=== PATIENT | female | born 1945 | race Two or more races ===

== ENCOUNTER → 2024-07-08 | Outpatient (CLI) | payer MEDICARE, MEDICAID, SELFPAY ==
--- NOTE | 2024-07-08 07:30 | XR_ITS ---
Examination: MRI brain without intravenous contrast. Date and time of exam: July 08, 2024 0708 hrs. Indications: Episodes of left hand and left arm paresthesias beginning 6 months ago with Technique: Multiple axial and sagittal images of the brain obtained. Siemens high-resolution 1.5 [employer] short bore scanners utilized. Sagittal sections, T1-weighted, TR 500, TE 14, are performed. Axial sections proton-density and T2-weighted have been obtained. Inversion recovery axial images, TR 9, 260, TE 111, TI 2500. Diffusion weighted images, axial sections, TR 4800, TE 128, B value 1000 Axial sections, ADC map, TR 4800, TE 128 Findings: 29 x 29 mm lesion in the right parietal lobe with surrounding edema Mild mass effect upon the right trigone, mild mass effect compressing the right lateral ventricle Ventricles are not enlarged No restricted diffusion Effacement of cortical sulcal markings adjacent to the brain lesion Fourth ventricle midline Brainstem intact Impression: 29 mm neoplastic lesion right parietal lobe, differential would include meningioma, other primary brain tumors, cerebral metastatic lesion Recommend this patient return for brain MRI images post intravenous contrast
== END | disposition home or self-care (01) ==
LOC: SMRI 06:57
PROVIDERS: PCP Family Medicine; Referring Provider Psychiatry & Neurology Neurology; Visit Provider Psychiatry & Neurology Neurology
DX: G93.89 Other specified disorders of brain (principal)
CPT/HCPCS: 70551

== ENCOUNTER → 2024-08-01 | Outpatient (CLI) | payer MEDICARE, MEDICAID, SELFPAY ==
[2024-08-01 16:22] LABS: Albumin, Serum 4.1 gm/dL (3.4-4.8); Anion Gap 6 (7-16); BUN/Creatinine Ratio 20 Ratio (12-20); Blood Urea Nitrogen 14 mg/dL (9-23); Calcium 8.5 mg/dL (8.3-10.6); Calcium (Corrected) 8.5 mg/dL (8.5-10.1); Carbon Dioxide 30.8 mMol/L (20.0-31.0); Chloride 104 mMol/L (98-107); Creatinine (Component) 0.7 mg/dL (0.6-1.3); Glucose 88 mg/dL (74-106); Osmolality,Calculated 280 (275-295); Phosphorous 3.4 mg/dL (2.4-5.1); Potassium 4.2 mMol/L (3.4-5.1); Sodium 141 mMol/L (136-145); eGFR > 60 See Note
== END | disposition home or self-care (01) ==
LOC: COPL 13:52
PROVIDERS: PCP Family Medicine; Referring Provider Psychiatry & Neurology Neurology; Visit Provider Psychiatry & Neurology Neurology
DX: I10 Essential (primary) hypertension (principal)
CPT/HCPCS: 36415; 80069

== ENCOUNTER → 2024-08-02 | Outpatient (CLI) | payer MEDICARE, MEDICAID, SELFPAY ==
--- NOTE | 2024-08-02 09:15 | XR_ITS ---
Examination: MRI brain with intravenous contrast TECHNIQUE: Multiple axial sagittal coronal brain MRI images post intravenous administration 15 cc gadolinium INDICATIONS: 29 mm neoplastic lesion right parietal lobe on brain MRI without contrast July 08, 2024, episodes of the left hand the left arm paresthesias beginning 6 months ago Exam date and time: August 02, 2024 0934 hours FINDINGS: 28 x 29 x 26 mm enhancing lesion right parietal convexity most consistent with meningioma Significant surrounding edema with effacement of the sulcal markings, no definite midline shift Additional enhancing lesions not identified Ventricles are normal in size IMPRESSION: 28 x 29 x 26 mm enhancing lesion right parietal convexity most consistent with meningioma
== END | disposition home or self-care (01) ==
LOC: SMRI 08:48
PROVIDERS: PCP Family Medicine; Referring Provider Psychiatry & Neurology Neurology; Visit Provider Psychiatry & Neurology Neurology
DX: G93.9 Disorder of brain, unspecified (principal)
CPT/HCPCS: 70552; A9579

== ENCOUNTER → 2024-08-05 | Outpatient (CLI) | payer MEDICARE, MEDICAID, SELFPAY ==
--- NOTE | 2024-08-05 14:00 | XR_ITS ---
Examination: CT chest with intravenous contrast CT abdomen with intravenous contrast CT pelvis with intravenous contrast CT chest without intravenous contrast CT abdomen without intravenous contrast CT pelvis without intravenous contrast 2-D coronal and sagittal reconstructions Time of exam: August 05, 2024 1246 hours INDICATIONS: Enhancing lesion in the brain on brain MRI August 02, 2024, staging CTDI: vol (mGy) : 28.9 DLP: (mGycm): 2036 Technique: Multiple axial images of the chest, abdomen and pelvis with intravenous contrast, 3.0 mm slice thickness. Images obtained pre and post intravenous injection Isovue 370 60 cc. 2-D sagittal and coronal reconstructions. Low dose protocols were performed. One or more of the following dose reduction techniques were used; automated exposure control, adjustment of the mA and/or KV according to patient size, use of iterative reconstruction technique. Findings: Thoracic aortic calcification no aneurysmal dilatation No pulmonary artery filling defects No paratracheal tracheobronchial or bronchopulmonary adenopathy No pneumonia or pulmonary edema or pleural disease No visualized liver or splenic lesion Cholelithiasis No pancreatic or adrenal mass No renal or ureteral calculi, no hydronephrosis Abdominal aorta is not enlarged No abdominal or pelvic lymphadenopathy Atrophic uterus Urinary bladder intact Severe osteopenia with kyphoplasty L1 and chronic osteoporotic compressions thoracic and lumbar vertebral bodies, advanced narrowing right hip joint IMPRESSION: No mediastinal lymphadenopathy No pneumonia or pulmonary edema. Disease or pulmonary mass lesions Cholelithiasis No abdominal or pelvic mass
== END | disposition home or self-care (01) ==
PROVIDERS: PCP Family Medicine; Referring Provider Psychiatry & Neurology Neurology; Visit Provider Psychiatry & Neurology Neurology
DX: K80.20 Calculus of gallbladder without cholecystitis without obstruction (principal); C71.0 Malignant neoplasm of cerebrum, except lobes and ventricles
CPT/HCPCS: 71270; 74178; A4649; Q9967

== ENCOUNTER → 2025-01-02 | Outpatient (CLI) | payer MEDICARE, MEDICAID, SELFPAY ==
[2025-01-02 09:03] LABS: Albumin, Serum 3.8 gm/dL (3.4-4.8); Anion Gap 10 (7-16); BUN/Creatinine Ratio 13 Ratio (12-20); Blood Urea Nitrogen 8 mg/dL (9-23); Calcium 8.7 mg/dL (8.3-10.6); Calcium (Corrected) 8.9 mg/dL (8.5-10.1); Carbon Dioxide 29.8 mMol/L (20.0-31.0); Chloride 105 mMol/L (98-107); Creatinine (Component) 0.6 mg/dL (0.6-1.3); Glucose 89 mg/dL (74-106); Osmolality,Calculated 286 (275-295); Phosphorous 3.5 mg/dL (2.4-5.1); Potassium 4.5 mMol/L (3.4-5.1); Sodium 145 mMol/L (136-145); eGFR > 60 See Note
== END | disposition home or self-care (01) ==
LOC: COPL 07:48
PROVIDERS: PCP Family Medicine; Referring Provider Psychiatry & Neurology Neurology; Visit Provider Psychiatry & Neurology Neurology
DX: G40.89 Other seizures (principal)
CPT/HCPCS: 36415; 80069

== ENCOUNTER 2025-02-21 16:55 | Emergency (ER) | payer MEDICARE, MEDICAID, SELFPAY ==
[2025-02-21 16:57] VITALS: BP 117/68; PULSE 78; RESP 18; TEMP 36.8; O2SAT 97
--- NOTE | 2025-02-21 17:15 | PD.EDADULT ---
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 On my initial evaluation patient told me that he does not remember what happened. Currently patient is drowsy and sleepy. There was no confusion postictal according to the EMS. No trauma mention related to the incident. Patient told me that she took her Keppra this morning. Related Data Home Medications ?Medication ?Instructions ?Recorded ?Confirmed acetaminophen 650 mg 650 mg PO Q8H PRN Pain 05/29/17 12/07/17 tablet,extended release (Tylenol Arthritis Pain) gabapentin 300 mg capsule 300 mg PO TID 05/29/17 12/07/17 amitriptyline 10 mg tablet 10 mg PO QDAY 12/07/17 12/07/17 Previous Rx's ?Medication ?Instructions ?Recorded hydrocodone 5 mg-acetaminophen 325 1 tab PO Q6H PRN pain #10 tabs 05/29/17 mg tablet (Lester) Allergies Allergy/AdvReac Type Severity Reaction Status Date / Time latex Allergy Severe Rash Verified 02/21/25 17:24 Review of Systems Review of Systems Narrative Review of Systems: Review of system reviewed and within normal limits except mentioned in HPI ED Exam Narrative Physical exam: VITAL SIGNS: Reviewed. GENERAL APPEARANCE: Alert and interactive, but drowsy, follows commands, no acute distress, HEAD AND FACE: Non-traumatic. ENT: PERRL, pink conjunctivitis, eyelid no trauma, Mucous membrane moist. NECK: Supple, nontender, no nuchal rigidity. CHEST: No tenderness, no crepitus, no paradoxical movement, no retractions. LUNGS: Clear, well ventilated, symmetric, no rales, no wheezing, no ronchi, no stridor, good breath sounds bilaterally. HEART: Regular rate, regular rhythm, no murmur, no gallops. ABDOMEN: Soft, positive bowel sounds, nondistended, no guarding, nontender, no rebound, no masses, RECTAL: Deferred. GENITAL: Deferred. NEUROLOGICAL: Gross motor function intact sensory function intact, Appropriate for age. MUSCULOSKELETAL: low back nontender, full range of motion. EXTREMITIES: Nontender, full range of motion. SKIN: Color pink, dry, no rash, no lacerations, no abrasions, no contusions. LYMPHATICS: Deferred. Course Quality Measures none Orders Category Date Time Status EKG (ED ONLY) *Do not use* NOW Care 02/21/25 17:[address] head/brain wo con Stat Exams 02/21/25 17:18 Taken EKG (ED Only) Stat Exams 02/21/25 17:17 Draft CBC Stat Lab 02/21/25 17:38 Completed Comprehensive Metabolic Panel Stat Lab 02/21/25 17:38 Completed Prothrombin Time with INR Stat Lab 02/21/25 17:38 Completed UA, C/S IF [Urinalysis, C/S if Indicated] Stat Lab 02/21/25 16:30 Completed Ringers Lactated 1000 ml [Lactated Ringers] 1,000 ml Med 02/21/25 17:19 Discontinued IV 999 mls/hr levETIRAcetam INJ [Keppra Inj] Med 02/21/25 17:19 Discontinued 1,000 mg IVP X1 ONE Vital Signs Vital signs: Vital Signs Temperature 98.3 F 02/21/25 16:57 Pulse Rate 78 02/21/25 16:57 Respiratory Rate 18 02/21/25 16:57 Blood Pressure 117/68 02/21/25 16:57 Pulse Oximetry (%) 97 02/21/25 16:57 Oxygen Delivery Method Room Air 02/21/25 16:57 Discharge Plan Plan Patient Disposition: HOME (Self Care) Discharge Disposition comment: Stable Prescriptions/Referrals Prescriptions/Med Rec: No Action amitriptyline 10 mg Tablet 10 mg PO QDAY acetaminophen [Tylenol Arthritis Pain] 650 mg Tablet Extended Release 650 mg PO Q8H PRN (Reason: Pain) gabapentin 300 mg Capsule 300 mg PO TID hydrocodone-acetaminophen [Lester] 5-325 mg tablet 1 tab PO Q6H MDD 10 PRN (Reason: pain) Qty: 10 0RF Referrals: Joe Ross MD [Primary Care Provider, Family Practice] - In 1 week Problem List Clinical Impression: Breakthrough seizure Patient/Caregiver Discharge Instructions Discharge Activity: activity as tolerated Education Materials: Living Well with Epilepsy Additional Instructions: Thank you for the opportunity for serving you today. You are stable for discharged . 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 On my initial evaluation patient told me that he does not remember what happened. Currently patient is drowsy and sleepy. There was no confusion postictal according to the EMS. No trauma mention related to the incident. Patient told me that she took her Keppra this morning. EKG as interpreted by me showed sinus rhythm, ventricular to 72 bpm, no ST segment elevation depression noted. Patient's workup today CBC showed no leukocytosis. CMP normal urinalysis no UTI, CT scan of the head showed no acute intracranial pathology noted. Patient was given IV fluids, Keppra 1 g IV, no recurrence of seizure noted in the ED. Patient is totally back to baseline, alert oriented x 3. No complaints. Was noted to be ambulatory with help Medication Administration(s) Medication Administration History Discontinued Medications Lactated Ringer's (Lactated Ringers) 1,000 mls @ 999 mls/hr IV .Q1H1M ONE Stop: 02/21/25 18:19 Last Infusion: 02/21/25 20:01 Dose: Infused Documented By: [email or web address] Admin: 02/21/25 17:58 Dose: 999 mls/hr Documented By: BY Levetiracetam (Levetiracetam Inj 100 Mg/Ml Vial 5ml) 1,000 mg IVP X1 ONE Stop: 02/21/25 17:20 Last Admin: 02/21/25 17:55 Dose: 1,000 mg Documented By: DB Diagnosis Differential Diagnosis ED Complaint MDM: Breakthrough seizure, syncope, history of seizure Diagnoses ruled out and/or further discussions: Breakthrough seizure
--- NOTE | 2025-02-21 17:17 | EKG_ITS ---
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
--- NOTE | 2025-02-21 17:18 | XR_ITS ---
Examination: CT brain head without contrast. 2-D sagittal coronal reconstructions Date and time of exam: February 21, 2025, 1852 hours INDICATIONS: History of removal of brain tumor, weakness history this week CTDI: vol (mGy): 46.8 DLP: (mGycm): 911 Technique: Multiple CT axial sections of the brain have been obtained, 5 mm slice thickness. Contrast has not been administered. 2-D sagittal, coronal reconstructions have been obtained Low dose protocols were performed. One or more of the following dose reduction techniques were used; automated exposure control, adjustment of the mA and/or KV according to patient size, use of iterative reconstruction technique. Findings: No significant ventricular enlargement. Intra-axial or extra-axial hemorrhage density is not seen. No mass effect or midline shift Basal cisterns are not remarkable. Fourth ventricle is midline. Right craniotomy defect Impression: Negative for acute hemorrhage, mass effect or midline shift As clinically warranted, brain MRI follow-up would be preferable in assessing for residual or recurrent brain tumor
[2025-02-21 17:20] VITALS: PULSE 72; RESP 24; O2SAT 99
[2025-02-21 17:24] VITALS: BMI 32.5
[2025-02-21] MEDS: levETIRAcetam INJ 100 MG/ML VIAL 5ML 1000 MG IVP (17:55)
[2025-02-21] MEDS: RINGERS LACTATED 1000 ML 1,000 ML 999 ML IV (17:58)
[2025-02-21 18:00] VITALS: BP 143/79; PULSE 69; RESP 17; TEMP 36.5; O2SAT 96
[2025-02-21 18:02] LABS: Basophils # (Auto) 0.0 Thou/mm3 (0.0-0.2); Basophils % (Auto) 1 % (0-2.5); Eosinophils # (Auto) 0.3 Thou/mm3 (0.0-0.5); Eosinophils % (Auto) 5 % (0-10); Hematocrit 35.1 % (36.0-46.0); Hemoglobin 11.2 g/dL (12.0-16.0); Immature Granulocytes Auto 0.01 Thou/mm3 (0.00-0.00); Lymphocytes # (Auto) 3.0 Thou/mm3 (1.0-4.8); Lymphocytes % (Auto) 44 % (10-50); Mean Corpuscular HGB Conc 31.9 g/dl (31.0-37.0); Mean Corpuscular Hemoglobin 29.2 pg (25.0-35.0); Mean Corpuscular Volume 91 fL (80-100); Monocytes # (Auto) 0.4 Thou/mm3 (0.0-0.8); Monocytes % (Auto) 6 % (0-12); Neutrophils # (Auto) 3.0 Thou/mm3 (1.8-7.7); Neutrophils % (Auto) 44 % (37-80); Nucleated Red Blood Cell # 0.00 Thou/mm3 (0.00-0.00); Nucleated Red Blood Cell % 0 /100 WBC (0); Platelet Count 236 Thou/mm3 (140-440); RDW Standard Deviation 47.4 fL (36.4-46.3); Red Blood Count 3.84 Miln/mm3 (4.00-5.20); White Blood Count 6.8 Thou/mm3 (3.6-11.0)
[2025-02-21 18:12] LABS: INR 1.0 (0.9-1.3); Prothrombin Time 10.5 Seconds (9.0-12.2)
[2025-02-21 18:31] LABS: Alanine Aminotransferase < 7 U/L (10-49); Albumin, Serum 3.7 gm/dL (3.4-4.8); Albumin/Globulin Ratio 1.3 (1.2-2.2); Alkaline Phosphatase 82 U/L (46-116); Anion Gap 9 (7-16); Aspartate Amino Transferase 16 U/L (0-34); BUN/Creatinine Ratio 16 Ratio (12-20); Bilirubin,Total 0.3 mg/dL (0.3-1.2); Blood Urea Nitrogen 11 mg/dL (9-23); Calcium 8.4 mg/dL (8.3-10.6); Calcium (Corrected) 8.6 mg/dL (8.5-10.1); Carbon Dioxide 31.5 mMol/L (20.0-31.0); Chloride 106 mMol/L (98-107); Creatinine (Component) 0.7 mg/dL (0.6-1.3); Estimated Creatinine Clearance 58.3 mL/min (>60); Globulin 2.8 gm/dL (2.3-3.5); Glucose 102 mg/dL (74-106); Osmolality,Calculated 289 (275-295); Potassium 4.0 mMol/L (3.4-5.1); Sodium 146 mMol/L (136-145); Total Protein 6.5 gm/dL (5.7-8.2); eGFR > 60 See Note
[2025-02-21 18:50] VITALS: BP 145/79; PULSE 70; RESP 18; O2SAT 98
[2025-02-21 19:16] LABS: Collection Type, Urine Clean Catch; Squamous Epithelial Cell,Urine 0 /hpf (0-5)
[2025-02-21 19:20] VITALS: BP 133/96; PULSE 66; RESP 19; TEMP 36.6; O2SAT 98
[2025-02-21 19:26] LABS: Bilirubin,Urine Negative (Negative); Blood,Urine Trace (Negative); Clarity,Urine Clear (Clear/Hazy); Color,Urine Lt-Yellow (Lt Yel-Yel); Culture Indicated,Urine Not Indicated; Glucose, Urine Negative (Negative); Ketones,Urine Negative (Negative); Leukocyte Esterase,Urine Negative (Negative); Nitrite,Urine Negative (Negative); PH,Urine 6.5 (5.0-7.0); Protein,Urine Negative (Neg - Trace); RBC,Urine 1 /hpf (0-3); Specific Gravity,Urine 1.008 (1.001-1.035); Urobilinogen,Urine Negative mg/dL (0.0-1.0); WBC,Urine 1 /hpf (0-5)
--- NOTE | 2025-02-21 19:51 | PRELIM_ITS ---
CT scan of the head without intravenous contrast (axial sections with sagittal and coronal reformats) February 21, 2025 1823 hours Clinical history: Unresponsiveness No prior study is available for comparison. Findings: There is no evidence of intracranial hemorrhage, mass effect or midline shift. There is a right parietal craniotomy with underlying encephalomalacic changes. There are periventricular white matter hypodensities, compatible with chronic small vessel ischemia. There is moderate volume loss. There is atheromatous calcification of the intracranial arteries. The calvarium is unremarkable. The mastoid air cells and the visualized paranasal sinuses are clear. Impression: No evidence of intracranial hemorrhage, mass effect or midline shift. Periventricular chronic small vessel ischemia and volume loss. Report Electronically Signed By: Almas Kilgore 02/21/2025 7:50:18 PM [EST]
[2025-02-21 21:38] VITALS: BP 148/47; PULSE 66; RESP 18; TEMP 36.8; O2SAT 96
== END 2025-02-21 21:40 | disposition home or self-care (01) ==
PROVIDERS: Nurse Practitioner Family; Emergency Provider Emergency Medicine; PCP Family Medicine
DX: R56.9 Unspecified convulsions (principal); R53.1 Weakness; R94.31 Abnormal electrocardiogram [ECG] [EKG]
CPT/HCPCS: 36415; 70450; 80053; 81001; 85025; 85610; 93005; 96361; 96374; 99284; J1953; J7120